=== PATIENT | female | born 1960 | race Caucasian/White ===

== ENCOUNTER 2019-12-28 18:02 | Emergency (ER) | payer BC, SELFPAY ==
[2019-12-28 19:48] VITALS: BP 119/65; PULSE 57; RESP 16; TEMP 36.9; O2SAT 99; BMI 40.6
--- NOTE | 2019-12-28 21:19 | ED_ITS ---
HPI - Female Genitourinary General Chief complaint: Urogenital-Female Stated complaint: MULTIPLE COMPLAINTS Time Seen by Provider: 12/28/19 21:19 Source: patient Mode of arrival: ambulatory Limitations: no limitations History of Present Illness HPI Narrative: Seen yesterday at the walk in and had a UTI and was placed on macrobid. this morning she vomited one time. Today patient had a negative rapid Covid, but because of GARCIA and vomiting the walk in sent her in MD elicited complaint: dysuria Onset (ago): day(s) Severity: mild Urinary symptoms: Dysuria Associated symptoms: other (migraine GARCIA, N/V) Related Data Previous Rx's Medication Instructions Recorded ondansetron HCl [Zofran] 4 mg PO Q8H PRN #10 tab 12/28/19 sulfamethoxazole-trimethoprim 1 tab PO BID #14 tab 12/28/19 [Bactrim DS] Allergies Allergy/AdvReac Type Severity Reaction Status Date / Time erythromycin base Allergy Unknown N/V Unverified 11/29/19 14:43 [ERYTHROMYCIN BASE] Review of Systems Constitutional: Constitutional: Reports no additional constitutional complaints Eyes: Eyes: Reports no additional eye complaints ENT: Denies dizziness Cardiovascular: Cardiovascular: Reports no additional cardiovascular complaints Respiratory: Respiratory: Reports as per HPI Gastrointestinal: Gastrointestinal: Reports no additional gastrointestinal complaints Genitourinary: Genitourinary: Reports no additional female genitourinary complaints Musculoskeletal: Musculoskeletal: Reports no additional musculoskeletal complaints Integumentary/Breasts: Skin/Breast: Denies rash Neurologic: Reports system reviewed and no additional complaints, except as documented, Denies dizziness and Denies Sensory deficit (Neuro) Psychiatric: Psychiatric: Denies anxiety [facility] Social History Social History Alcohol intake: unknown Smoking Status: Never smoker Smoked in Last 30 Days: No Use of substances other than those prescribed or required for medical reasons: No Advance Directives: No Advance Directives Information Provided: Yes Physical Exam Vital Signs: Vital Signs: Vital Signs Temp Pulse Resp BP Pulse Ox 12/28/19 19:48 98.4 F 57 16 119/65 99 Body Mass Index 40.6 Const: General: healthy appearing Nutritional Appearance: overweight Orientation/consciousness: oriented to person and patient oriented x3 Limitations: no limitations HENMT: Head: Yes normal to inspection Ears: external ears normal General nose exam: Normal external nose present Mouth: Normal oral and palatal mucosa present and oropharynx normal Throat: Yes posterior oropharynx normal Eyes: General: appearance normal, both eyes and all related structures Neck: Other: supple Neck: Yes normal visual inspection Chest: Chest palpation & inspection: normal inspection of the chest Resp: Auscultation: clear to auscultation bilaterally Cardio: Jugular venous distension: no JVD Rate: regular rate Rhythm: regular rhythm Heart sounds: S1 normal heart sound present and S2 normal heart sound present GI: Inspection: Yes normal to inspection Palpation (GI): Soft to palpation, nontender and No hepatosplenomegaly present Auscultation: normal bowel sounds : General: Yes no CVA tenderness Back/Spine/Pelvis: Back: no CVA tenderness Skin: General skin exam: no rashes or lesions noted Neuro: General: oriented to person and patient oriented x3 Cranial nerves: Yes CN's II-XII intact bilaterally Motor exam (neuro): 5/5 motor strength present throughout Sensory Exam: No Sensory deficit (Neuro) Extrem: General: Yes normal to inspection Psych: Appearance: grossly normal Course Course Course Narrative: patient feeling better not vomiting will dc home on zofran and bactrim MDM - Female Genitourinary Lab Data Result diagrams: 12/28/19 21:45 12/28/19 21:45 Labs: Lab Results 12/28/19 12/28/19 Range/Units 21:45 21:45 WBC 11.2 H (4.8-10.8) X10*3/uL RBC 4.22 (4.20-5.50) X10*6/uL Hgb 13.2 (12.0-16.0) g/dl Hct 39.9 (37-47) % MCV 94.5 (80-98) fL MCH 31.3 (27.0-33.0) pg MCHC 33.1 (31.0-35.0) g/dl RDW 12.2 (11.0-16.0) % Plt Count 267 (160-400) X10*3/uL MPV 9.8 (9.4-12.3) fL Immature Gran % (Auto) 0.4 (0.0-0.4) % Neut % (Auto) 69.5 (45-73) % Lymph % (Auto) 24.4 (20-40) % Crane % (Auto) 5.1 (2-11) % Eos % (Auto) 0.3 (0-4) % Baso % (Auto) 0.3 (0-2) % Lymph # (Auto) 2.7 (1.2-4.9) X10*3/uL [place]ane # (Auto) 0.6 (0.1-1.2) X10*3/uL Eos # (Auto) 0.0 (0.0-0.4) X10*3/uL Baso # (Auto) 0.0 (0.0-0.2) X10*3/uL Abs Immat Gran (auto) 0.04 H (0.00-0.03) X10*3/uL Absolute Neuts (auto) 7.8 (2.0-8.3) X10*3/uL Absolute Nucleated RBC 0.000 (0.0-0.012) X10*3/uL Nucleated RBC % (auto) 0.0 (0.0-0.2) /100WBC Sodium 139 (135-145) mmol/L Potassium 3.7 (3.3-5.1) mmol/l Chloride 100 (96-108) mmol/L Carbon Dioxide 30 H (22-29) mmol/L Anion Gap 13 (12-20) BUN 10 (9-16) mg/dL Creatinine 0.78 (0.5-1.4) mg/dL Estim Creat Clear Calc 108.5 Estimated GFR > 60 Random Glucose 107 (60-115) mg/dL Calcium 9.0 (8.4-10.2) mg/dL Discharge Plan Discharge Clinical Impression: Urinary tract infection Qualifiers: Urinary tract infection type: acute cystitis Hematuria presence: without hematuria Qualified Code(s): N30.00 - Acute cystitis without hematuria Migraine Qualifiers: Migraine type: unspecified Status migrainosus presence: without status migrainosus Intractability: not intractable Qualified Code(s): G43.909 - Migraine, unspecified, not intractable, without status migrainosus Patient Disposition: Home, Self-Care Instructions: Urinary Tract Infection in Older Adults (ED) Additional Instructions: stop macrobid and start bactrim Prescriptions: New sulfamethoxazole-trimethoprim [Bactrim DS] 800-160 mg tablet 1 tab PO BID Qty: 14 RF: 0 ondansetron HCl [Zofran] 4 mg tablet 4 mg PO Q8H PRN (Reason: nausea and vomiting) Qty: 10 RF: 0 Referrals: Mark Zaidi MD [Primary Care Provider] - 2 days
[2019-12-28 22:00] LABS: MANUAL DIFF FLAG NO
[2019-12-28] MEDS: Ketorolac Tromethamine 30 MG/ML VIAL IVPUSH (22:01)
[2019-12-28] MEDS: 0.9 % Sodium Chloride 500 ML 1000 ML IV (22:04)
[2019-12-28 22:05] LABS: Basophils Percent Auto 0.3 % (0-2); Eosinophils Percent Auto 0.3 % (0-4); Hematocrit 39.9 % (37-47); Hemoglobin 13.2 g/dl (12.0-16.0); Imm Gran Abs Auto 0.04 X10*3/uL (0.00-0.03); Imm Gran Pct Auto 0.4 % (0.0-0.4); Lymphocytes Absolute Auto 2.7 X10*3/uL (1.2-4.9); Lymphocytes Percent Auto 24.4 % (20-40); Mean Corpuscular HGB Conc 33.1 g/dl (31.0-35.0); Mean Corpuscular Hemoglobin 31.3 pg (27.0-33.0); Mean Corpuscular Volume 94.5 fL (80-98); Mean Platelet Volume 9.8 fL (9.4-12.3); Monocytes Absolute Auto 0.6 X10*3/uL (0.1-1.2); Monocytes Percent Auto 5.1 % (2-11); Neutrophils Absolute Auto 7.8 X10*3/uL (2.0-8.3); Neutrophils Percent Auto 69.5 % (45-73); Platelet Count 267 X10*3/uL (160-400); Red Blood Count 4.22 X10*6/uL (4.20-5.50); Red Cell Distribution Width 12.2 % (11.0-16.0); White Blood Count 11.2 X10*3/uL (4.8-10.8)
[2019-12-28 22:30] LABS: Anion Gap 13 (12-20); Blood Urea Nitrogen 10 mg/dL (9-16); Carbon Dioxide 30 mmol/L (22-29); Chloride 100 mmol/L (96-108); Creatinine Clr Calc Pharmacy 108.5; Estimated Glomerular Filt Rate > 60; Glucose Random 107 mg/dL (60-115); Potassium 3.7 mmol/l (3.3-5.1); Sodium 139 mmol/L (135-145)
[2019-12-28 23:45] VITALS: RESP 18; TEMP 36.4
== END 2019-12-28 23:46 | disposition home or self-care (01) ==
PROVIDERS: Emergency Provider Emergency Medicine; PCP Family Medicine
DX: N30.00 Acute cystitis without hematuria (principal); G43.909 Migraine, unspecified, not intractable, without status migrainosus; Z79.899 Other long term (current) drug therapy
CPT/HCPCS: 36415; 80048; 85025; 96361; 96374; 96375; 99285; J1885

== ENCOUNTER 2023-04-16 18:12 | Observation (INO) | payer BC, SELFPAY ==
--- NOTE | ~2023-04-16 | CT_ITS ---
EXAMINATION: CT ABDOMEN AND PELVIS WITH CONTRAST CLINICAL INFORMATION: Abdominal pain COMPARISON: None TECHNIQUE: Multiple axial images were obtained from the superior aspect of the liver through the pubic symphysis after the administration of 100 mL of intravenous Omnipaque 350. Images were evaluated on independent dedicated 3-D workstation and 3-D images were reconstructed with concurrent radiologist supervision and subsequently interpreted. Oral contrast was not administered. This CT examination was performed using dose optimization techniques as appropriate, variously including the following: *Automated exposure control *Adjustment of mA and/or kV according to patient size (this includes techniques or standardized protocols for targeted exams where dose is matched to indication/reason for exam; i.e. extremities or head) *Use of iterative reconstruction technique DLP: 1236 mGy-cm FINDINGS: LUNG BASES: The visualized lung bases are clear. CARDIOMEDIASTINUM: The visualized heart is normal in size without pericardial effusion. No coronary artery calcification. LIVER: Homogeneous in attenuation. Normal in size. GALLBLADDER: Absent. BILIARY SYSTEM: No intrahepatic or extrahepatic biliary dilation. PANCREAS: Homogeneous in attenuation. SPLEEN: Normal in size. GENITOURINARY: Bilateral kidneys demonstrate symmetric enhancement. No perinephric fluid collection. No renal calculi. No hydroureteronephrosis. ADRENAL GLANDS: Unremarkable. REPRODUCTIVE: Uterus and and bilateral adnexa are unremarkable. GASTROINTESTINAL: The visualized alimentary tract is normal in course. No evidence of obstruction. APPENDIX: Air-filled measuring 7 mm in diameter with periappendiceal fluid. PERITONEUM: No pneumoperitoneum. Trace free fluid within the pelvis.. VASCULATURE: The abdominal aorta is normal in course and caliber. LYMPH NODES: No pathologically enlarged abdominal or pelvic lymph nodes. SOFT TISSUES/MUSCULOSKELETAL: Severe multilevel facet arthropathy from L2 to S1. No acute fractures or focal osseous lesions. CT/CT abdomen pelvis w IV con IMPRESSION: Air-filled appendix with diameter of 7 mm and periappendiceal fluid. Although the appendiceal wall is not impressively thickened, these findings raise suspicion for acute appendicitis. Recommend surgical consultation. Fleischner guidelines were followed.
[2023-04-16 18:18] VITALS: BP 134/82; PULSE 84; RESP 16; TEMP 37.4; O2SAT 94; BMI 42.5
--- NOTE | 2023-04-16 18:18 | ED_ITS ---
HPI - General Adult General Chief complaint: Abdominal Pain Stated complaint: abd pain, vomitting Time Seen by Provider: 04/16/23 20:41 Source: patient Mode of arrival: ambulatory Limitations: no limitations History of Present Illness HPI narrative: Patient is a 62 year old assigned female at with a history of uveitis and diverticulosis presenting to the emergency department today with abdominal pain. Patient states that over the last few hours she has had abdominal pain and vomiting. Patient denies any dizziness, lightheadedness, fever, chills, blurry vision, double vision, loss of vision, chest pain, difficulty breathing, shortness of breath, back pain, night sweats, pain with urination, increased urinary frequency, increased urinary urgency, blood in her urine or stool, syncope or a near syncopal episode, recent trauma or falls, bowel incontinence, bladder incontinence, bowel retention, bladder retention, or any other complaints at this time. Onset (ago): hour(s) Location: abdomen Severity: mild Severity scale (1-10): 4 Relieving factors: none Exacerbating factors: none Associated symptoms: nausea/vomiting Treatments prior to arrival: none Related Data Previous Rx's Medication Instructions Recorded ondansetron HCl 4 mg tablet 4 mg PO Q8H PRN nausea and 12/28/19 (Zofran) vomiting #10 tabs sulfamethoxazole 800 1 tab PO BID #14 tabs 16/20 mg-trimethoprim 160 mg tablet (Bactrim DS) Allergies Allergy/AdvReac Type Severity Reaction Status Date / Time erythromycin base Allergy Unknown N/V Verified 04/17/23 00:19 [ERYTHROMYCIN BASE] Review of Systems 2 Constitutional: Constitutional: Reports no additional constitutional complaints, Denies chills, Denies fever(s) and Denies night sweats Eyes: Eyes: Reports no additional eye complaints, Denies blurry vision, Denies change in vision, Denies diplopia, Denies eye discharge, Denies loss of vision and Denies eye pain ENT: Denies dizziness Cardiovascular: Cardiovascular: Reports no additional cardiovascular complaints, Denies chest pain, Denies lightheadedness, Denies Loss of Consciousness and Denies dyspnea Respiratory: Respiratory: Reports no additional respiratory complaints and Denies dyspnea Gastrointestinal: Gastrointestinal: Reports no additional gastrointestinal complaints, Reports abdominal pain, Denies melena, Denies hematochezia, Denies change in bowel habits, Denies change in stool character, Reports nausea and Reports vomiting Genitourinary: Genitourinary: Denies hematuria, Denies urinary frequency, Denies dysuria, Denies urinary incontinence, Denies urinary hesitancy and Denies urinary urgency Musculoskeletal: Musculoskeletal: Reports no additional musculoskeletal complaints, Denies numbness and Denies tingling Neurologic: Denies dizziness, Denies loss of vision, Denies numbness and Denies tingling Psychiatric: Psychiatric: Reports no additional psychiatric complaints Endocrine: Endocrine: Reports no additional endocrine complaints Hematologic/Lymphatic: Hematologic/Lymphatic: Reports no additional hematologic/lymphatic complaints Allergic/Immunologic: Allergic/Immunologic: Reports no additional allergic/immunologic complaints PMFSH Past Medical History Attestation statement: The following information was validated with the patient. Source: old records reviewed and nursing notes reviewed Social History Social History Alcohol intake: unknown Smoked in Last 30 Days: No Use of substances other than those prescribed or required for medical reasons: No Advance Directives: Yes Advance Directives Information Provided: No Advance Directives on File: No Physical Exam ED Vital Signs: Vital Signs - 24 hr 04/16/23 18:18 04/16/23 23:28 04/16/23 23:28 Temperature 99.3 F 98.1 F 98.6 F Pulse Rate 84 63 67 Respiratory Rate 16 16 16 Blood Pressure 134/82 146/63 H 146/63 H Pulse Oximetry 94 98 98 Oxygen Delivery Method Room Air Room Air Room Air BMI result Body Mass Index 42.5 Const General: cooperative, no acute distress, alert and awake Nutritional Appearance: well nourished Orientation/consciousness: patient oriented x3 Limitations: no limitations [facility] Head: Yes normal to inspection and Yes atraumatic Ears: hearing grossly normal bilaterally and external ears normal General nose exam: Normal external nose present, no nasal discharge noted and no epistaxis Face and sinus: Yes normal facial exam, No abrasion and No laceration Mouth: Normal oral and palatal mucosa present, no drooling and no muffled voice Eyes General: appearance normal, both eyes and all related structures Periorbital: periorbital findings normal Eyelids: Yes eyelids normal Conjunctivae: conjunctivae normal Pupils: Equal, round and reactive pupils present EOM: EOMs intact bilaterally Neck Neck: Yes normal visual inspection, Yes full ROM and Yes no lymphadenopathy Chest Chest palpation & inspection: normal inspection of the chest Resp Effort & Inspection: normal respiratory effort and able to speak in complete sentences GI Inspection: Yes normal to inspection Palpation (GI): Soft to palpation, not firm, Tenderness to palpation present (GI) in the RLQ, no guarding and not rigid Neuro General: patient oriented x3 and moves all extremities Cranial nerves: Yes Equal, round and reactive pupils present Cognition (Neuro): normal cognition Motor exam (neuro): 5/5 motor strength present throughout Sensory Exam: Normal double simultaneous stimulation for sensation Coordination: [id number] test normal Extrem General: Yes normal to inspection, Yes full ROM and Yes capillary refill normal Psych Appearance: grossly normal Mental Status: mental status grossly normal Affect: normal affect Attitude: cooperative Thought process: Normal thought process present Thought content: Normal thought content present Insight: Good insight present (Psych) Course Course Course Narrative: This is a rapid medical exam: Additional HPI, ROS, PE not included below will be deferred to primary provider. Patient is a 62-year-old female presenting to the ED with complaint of abdominal pain since 2 pm. Developed nausea and vomiting at 4pm. Took a zofran which is prescribed to her for migraines, but continued to vomit. Denies diarrhea or fevers. States pain is epigastric and to both sides of abdomen. Plan: EKG, labs, UA, viral swabs Medications Administered Generic Name Dose Route Start Last Admin Trade Name Freq PRN Reason Stop Dose Admin Acetaminophen 1,000 mg in 100 mls @ 400 mls/hr 04/16/23 23:45 04/17/23 01:09 Ofirmev IV 04/17/23 17:59 Infused Q6H TERESA Infusion Dextrose/Lactated Ringer's 1,000 mls @ 125 mls/hr 04/16/23 23:45 04/17/23 01:08 D5lr IVCONT 125 mls/hr .Q8H TERESA Administration Sodium Chloride 3 ml 04/17/23 00:00 04/17/23 01:08 0.9 % Sodium Chloride Flush 3 Ml Syringe IVFLUSH Not Given QSHIFT TERESA Discontinued Medications Generic Name Dose Route Start Last Admin Trade Name Freq PRN Reason Stop Dose Admin Piperacillin Sod/Tazobactam 50 mls @ 100 mls/hr 04/16/23 23:59 04/17/23 01:08 Sod 3.375 gm/ Sodium Chloride IV 04/17/23 00:28 Infused ONCE ONE Infusion Iohexol 100 ml 04/16/23 22:47 04/16/23 22:48 Iohexol 350 Mg/Ml 100 Ml Infus..Btl IV 04/16/23 22:48 100 ml ONCE ONE Administration Medical Decision Making Medical Decision Making MDM Narrative: Patient is a 62 year old assigned female at with a history of uveitis and diverticulitis presenting to the emergency department today with RLQ abdominal pain. Patient's physical exam was as noted in the physical exam portion of the note. Patient's blood work showed an elevated WBC count of 11.6 but otherwise unremarkable. Patient's urine showed no acute process. Patient's EKG was unremarkable. Patient's abdomen/pelvis CT showed a possible appendicitis. I spoke to the surgical team who agreed to admission and recommended starting IV Zosyn. I explained my physical exam findings as well as all test results to the patient and the patient's . I answered all questions asked by the patient and the patient's . Patient and the patient's verbalized agreement and understanding with this treatment plan and admission. Differential Diagnosis Differential Diagnoses: The differential diagnosis associated with the presentation includes Appendicitis Diverticulitis Abdominal pain Nausea Vomiting Admission/Observation Consideration of admission/observation: Escalation of care including admission/observation considered Patient admitted. 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 My interpretation of these results are in the MDM Rationale portion of this note. 04/16/23 18:42 04/16/23 18:42 Labs: Lab Results 04/16/23 Range/Units 18:42 WBC 11.6 H (4.8-10.8) X10*3/uL RBC 4.46 (4.20-5.50) X10*6/uL Hgb 13.2 (12.0-16.0) g/dl Hct 39.4 (37.0-47.0) % MCV 88.3 (80.0-98.0) fL MCH 29.6 (27.0-33.0) pg MCHC 33.5 (31.0-35.0) g/dl RDW 12.5 (11.0-16.0) % Plt Count 311 (160-400) X10*3/uL MPV 9.3 L (9.4-12.3) fL Immature Gran % (Auto) 0.3 (0.0-0.4) % Neut % (Auto) 80.9 H (45-73) % Lymph % (Auto) 14.1 L (20-40) % [place]atte % (Auto) 3.4 (2-11) % Eos % (Auto) 1.0 (0-4) % Baso % (Auto) 0.3 (0-2) % Lymph # (Auto) 1.6 (1.2-4.9) X10*3/uL [place] # (Auto) 0.4 (0.1-1.2) X10*3/uL Eos # (Auto) 0.1 (0.0-0.4) X10*3/uL Baso # (Auto) 0.0 (0.0-0.2) X10*3/uL Abs Immat Gran (auto) 0.03 (0.00-0.03) X10*3/uL Absolute Neuts (auto) 9.4 H (2.0-8.3) x10*3/uL Absolute Nucleated RBC 0.000 (0.0-0.012) X10*3/uL Nucleated RBC % (auto) 0.0 (0.0-0.2) /100WBC PT 11.5 (11.1-13.3) SEC INR 0.9 (0.9-1.1) Sodium 144 (135-145) mmol/L Potassium 4.4 (3.3-5.1) mmol/L Chloride 109 H (96-108) mmol/L Carbon Dioxide 23 (22-29) mmol/L Anion Gap 16 (12-20) BUN 11 (9-16) mg/dL Creatinine 0.80 (0.5-1.4) mg/dL Estim Creat Clear Calc 107.8 Estimated GFR > 60 Random Glucose 137 H (60-115) mg/dL Calcium 9.5 (8.4-10.2) mg/dL Total Bilirubin 0.5 (0.0-1.0) mg/dL AST 16 (5-31) U/L ALT 21 (0-31) U/L Alkaline Phosphatase 127 H (39-117) U/L Troponin I High Sens 3.1 (<3.5-17.0) ng/L Total Protein 6.7 (6.5-8.0) g/dL Albumin 4.0 (3.5-5.0) g/dL COVID-19 (JAREN) Negative (Negative) COVID-19 Clin Com See Note Independent Interpretation I performed an independent interpretation of an: CT Scan Interpretation: My interpretation is in agreement with the radiologist's impression of this imaging study. - EXAMINATION: CT ABDOMEN AND PELVIS WITH CONTRAST CLINICAL INFORMATION: Abdominal pain COMPARISON: None TECHNIQUE: Multiple axial images were obtained from the superior aspect of the liver through the pubic symphysis after the administration of 100 mL of intravenous Omnipaque 350. Images were evaluated on independent dedicated 3-D workstation and 3-D images were reconstructed with concurrent radiologist supervision and subsequently interpreted. Oral contrast was not administered. This CT examination was performed using dose optimization techniques as appropriate, variously including the following: *Automated exposure control *Adjustment of mA and/or kV according to patient size (this includes techniques or standardized protocols for targeted exams where dose is matched to indication/reason for exam; i.e. extremities or head) *Use of iterative reconstruction technique DLP: 1236 mGy-cm FINDINGS: LUNG BASES: The visualized lung bases are clear. CARDIOMEDIASTINUM: The visualized heart is normal in size without pericardial effusion. No coronary artery calcification. LIVER: Homogeneous in attenuation. Normal in size. GALLBLADDER: Absent. BILIARY SYSTEM: No intrahepatic or extrahepatic biliary dilation. PANCREAS: Homogeneous in attenuation. SPLEEN: Normal in size. GENITOURINARY: Bilateral kidneys demonstrate symmetric enhancement. No perinephric fluid collection. No renal calculi. No hydroureteronephrosis. ADRENAL GLANDS: Unremarkable. REPRODUCTIVE: Uterus and and bilateral adnexa are unremarkable. GASTROINTESTINAL: The visualized alimentary tract is normal in course. No evidence of obstruction. APPENDIX: Air-filled measuring 7 mm in diameter with periappendiceal fluid. PERITONEUM: No pneumoperitoneum. Trace free fluid within the pelvis.. VASCULATURE: The abdominal aorta is normal in course and caliber. LYMPH NODES: No pathologically enlarged abdominal or pelvic lymph nodes. SOFT TISSUES/MUSCULOSKELETAL: Severe multilevel facet arthropathy from L2 to S1. No acute fractures or focal osseous lesions. CT/CT abdomen pelvis w IV con IMPRESSION: Air-filled appendix with diameter of 7 mm and periappendiceal fluid. Although the appendiceal wall is not impressively thickened, these findings raise suspicion for acute appendicitis. Recommend surgical consultation. Fleischner guidelines were followed. Dictated By: Wellington Norman Signed By: Electronically signed by Wellington Norman 04/16/23 4003 Radiology Impression Discussion of test interpretation with radiology: I have reviewed the radiologist's reading. Independent Historian Clinical information obtained from an independent historian. History obtained from or confirmed by: Spouse (patient's provided additional history and confirmed the history provided by the patient.) Critical Care Time Critical Care Time Critical Care Time: Yes Total Critical Care Time: 45 Attestation: I spent 45 minutes of Critical Care Time with this patient. This does not include time spent on separately reported billable procedures. Discharge Plan Discharge Clinical Impression: Appendicitis Patient Disposition: Admitted As Inpatient Interventions: Admission Worksheet (ED) Last Done: 04/17/23 00:51
--- NOTE | 2023-04-16 18:20 | ECG_ITS ---
Test Reason : abd pain vomiting Blood Pressure : / mmHG Vent. Rate : 079 BPM Atrial Rate : 079 BPM P-R Int : 138 ms QRS Dur : 088 ms QT Int : 370 ms P-R-T Axes : 000 -39 003 degrees QTc Int : 424 ms Normal sinus rhythm Left axis deviation Abnormal ECG When compared with ECG of 25-MAR-2005 03:23, No significant change was found Referred By: Shauna Heck Electronically Signed By:ARGELIA PARIS MD
[2023-04-16 18:47] LABS: MANUAL DIFF FLAG NO
[2023-04-16 18:50] LABS: Basophils Percent Auto 0.3 % (0-2); Eosinophils Absolute Auto 0.1 X10*3/uL (0.0-0.4); Hematocrit 39.4 % (37.0-47.0); Hemoglobin 13.2 g/dl (12.0-16.0); Imm Gran Abs Auto 0.03 X10*3/uL (0.00-0.03); Imm Gran Pct Auto 0.3 % (0.0-0.4); Lymphocytes Absolute Auto 1.6 X10*3/uL (1.2-4.9); Lymphocytes Percent Auto 14.1 % (20-40); Mean Corpuscular HGB Conc 33.5 g/dl (31.0-35.0); Mean Corpuscular Hemoglobin 29.6 pg (27.0-33.0); Mean Corpuscular Volume 88.3 fL (80.0-98.0); Mean Platelet Volume 9.3 fL (9.4-12.3); Monocytes Absolute Auto 0.4 X10*3/uL (0.1-1.2); Monocytes Percent Auto 3.4 % (2-11); Neutrophils Absolute Auto 9.4 x10*3/uL (2.0-8.3); Neutrophils Percent Auto 80.9 % (45-73); Platelet Count 311 X10*3/uL (160-400); Red Blood Count 4.46 X10*6/uL (4.20-5.50); Red Cell Distribution Width 12.5 % (11.0-16.0); White Blood Count 11.6 X10*3/uL (4.8-10.8)
[2023-04-16 18:55] LABS: INTERNATIONAL NORM RATIO 0.9 (0.9-1.1); Prothrombin Time 11.5 SEC (11.1-13.3)
[2023-04-16 19:06] LABS: Alanine Aminotransferase 21 U/L (0-31); Alkaline Phosphatase 127 U/L (39-117); Anion Gap 16 (12-20); Aspartate Amino Transferase 16 U/L (5-31); Bilirubin Total 0.5 mg/dL (0.0-1.0); Blood Urea Nitrogen 11 mg/dL (9-16); Calcium 9.5 mg/dL (8.4-10.2); Carbon Dioxide 23 mmol/L (22-29); Chloride 109 mmol/L (96-108); Creatinine Clr Calc Pharmacy 107.8; Estimated Glomerular Filt Rate > 60; Glucose Random 137 mg/dL (60-115); Potassium 4.4 mmol/L (3.3-5.1); Sodium 144 mmol/L (135-145); Total Protein 6.7 g/dL (6.5-8.0)
[2023-04-16 19:13] LABS: Troponin-I High Sensitivity 3.1 ng/L (<3.5-17.0)
[2023-04-16 19:15] LABS: COVID-19 Test Negative (Negative); IDNOW Serial# 152EDE1D
[2023-04-16] MEDS: iohexoL 350 MG/ML 100 ML INFUS..BTL IV (22:48)
[2023-04-16 23:28] VITALS: BP 146/63; PULSE 63; PULSE 67; RESP 16; TEMP 36.7; TEMP 37; O2SAT 98
[2023-04-17] MEDS: Acetaminophen 1,000 MG/100 ML PIGGYBACK 400 MG IV ×3 (00:46→12:23)
[2023-04-17] MEDS: Piperacillin Sodium/Tazobactam 3.375 GM in 0.9 % Sodium Chloride 50 ML IV ×2 (00:46→05:51)
[2023-04-17 00:49] LABS: Appearance Urine Clear; Color Urine Yellow; Glucose Urine UA Negative (Negative); Leukocyte Esterase Urine Negative (Negative); Nitrite Urine Negative (Negative); PH 5.5 (5.0-9.0); Specific Gravity - Urine >= 1.030 (1.005-1.025); Urine Blood Negative (Negative); Urine Ketones Negative (Negative); Urine Protein Negative (Neg-Trace)
[2023-04-17 01:04] LABS: Lactic Acid 1.1 mmol/L (0.5-2.0)
[2023-04-17] MEDS: Dextrose 5 % and Lactated Ring 1,000 ML 125 ML IVCONT (01:08)
[2023-04-17 01:46] VITALS: BMI 42.4
[2023-04-17 01:47] VITALS: BP 147/76; PULSE 76; RESP 18; TEMP 36.3; O2SAT 96
[2023-04-17 02:51] VITALS: RESP 20; O2SAT 96
[2023-04-17 06:16] LABS: MANUAL DIFF FLAG NO
[2023-04-17 06:26] LABS: Basophils Percent Auto 0.6 % (0-2); Eosinophils Absolute Auto 0.2 X10*3/uL (0.0-0.4); Eosinophils Percent Auto 2.9 % (0-4); Hematocrit 33.5 % (37.0-47.0); Hemoglobin 10.9 g/dl (12.0-16.0); Imm Gran Abs Auto 0.02 X10*3/uL (0.00-0.03); Imm Gran Pct Auto 0.3 % (0.0-0.4); Lymphocytes Absolute Auto 1.9 X10*3/uL (1.2-4.9); Lymphocytes Percent Auto 28.6 % (20-40); Mean Corpuscular HGB Conc 32.5 g/dl (31.0-35.0); Mean Corpuscular Hemoglobin 29.3 pg (27.0-33.0); Mean Corpuscular Volume 90.1 fL (80.0-98.0); Mean Platelet Volume 9.2 fL (9.4-12.3); Monocytes Absolute Auto 0.4 X10*3/uL (0.1-1.2); Neutrophils Percent Auto 61.6 % (45-73); Platelet Count 256 X10*3/uL (160-400); Red Blood Count 3.72 X10*6/uL (4.20-5.50); Red Cell Distribution Width 12.7 % (11.0-16.0); White Blood Count 6.5 X10*3/uL (4.8-10.8)
--- NOTE | 2023-04-17 06:36 | P.HPGS_ITS ---
History of Present Illness History of Present Illness Date of Service: 04/17/23 Chief complaint: early acute appendicitis Narrative: Falguni Roblero is a 62 year old female recently diagnosed with uveitis 1 week ago now presenting with complaints of abdominal pain. The pain began in t he upper abdomen but gradually radiated into the right lower quadrant. Pain was associated with some anorexia but without nausea or vomiting. She denied fever or chills. She reports a previous episode of similar pain approximately a year ago while in [place]. This episode resulted in right groin pain as well. The previous episode improved spontaneously without the need for medical treatment. She presented to the emergency department yesterday and was noted to have tenderness in the right lower quadrant. Laboratories revealed an elevated WBC. CT abdomen and pelvis revealed a gas-filled appendix which was not dilated however a small amount of fluid was noted surrounding the appendix. Although not diagnostic, this was felt possibly due to early appendicitis. The patient was subsequently admitted to the surgical service for IV antibiotics. She received Zosyn overnight and this morning reports feeling much improved with no further abdominal pain, nausea or vomiting. She still does not have much of an appetite however. Repeat WBC is normal this morning. Review of Systems Review of Systems: Yes all other systems are reviewed and are negative Constitutional: Constitutional: Denies chills and Reports poor appetite Gastrointestinal: Gastrointestinal: Reports abdominal pain, Denies heartburn, Denies diarrhea, Denies nausea and Denies vomiting Musculoskeletal: Musculoskeletal: Reports no additional musculoskeletal complaints PMFSH Past Medical History Medical History Cataract (lens) fragments in eye following cataract surgery, bilateral Surgical History Surgical History History of total knee replacement Social History Social History Alcohol intake: unknown Smoked in Last 30 Days: No Second Hand Smoke Exposure: No Use of substances other than those prescribed or required for medical reasons: No Advance Directives: Yes Advance Directives Information Provided: No Advance Directives on File: No Advance Directives Date on File: 04/17/23 Meds Allergies Allergy/AdvReac Type Severity Reaction Status Date / Time erythromycin base Allergy Unknown N/V Verified 04/17/23 00:19 [ERYTHROMYCIN BASE] Active Medications: Current Medications Hydromorphone HCl (Hydromorphone Hcl 0.5 Mg/0.5 Ml Syringe) 0.5 mg IVPUSH Q3H PRN; Protocol PRN Reason: Pain, Severe (Pain Scale 7-10) Acetaminophen (Ofirmev) 1,000 mg in 100 mls @ 400 mls/hr IV Q6H [facility] Stop: 04/17/23 17:59 Last Admin: 04/17/23 06:26 Dose: 400 mls/hr Piperacillin Sod/Tazobactam (Sod 3.375 gm/ Sodium Chloride) 50 mls @ 100 mls/hr IV Q6H [facility] Last Infusion: 04/17/23 06:21 Dose: Infused Ondansetron HCl (Ondansetron Hcl 4 Mg/2 Ml Vial) 4 mg IVPUSH Q6H PRN PRN Reason: Nausea Oxycodone HCl (Oxycodone Hcl Immed Release 5 Mg Tablet) 5 mg PO Q6H PRN PRN Reason: Pain, Moderate(Pain Scale 4-6) Prednisolone Acetate (Prednisolone Acetate 1 % Oph Susp 5 Ml Drpbtl) 1 drop EYE-BOTH Q3H [facility] Sodium Chloride (0.9 % Sodium Chloride Flush 3 Ml Syringe) 3 ml IVFLUSH QSHIFT [facility] Last Admin: 04/17/23 01:08 Dose: Not Given Zolpidem Tartrate (Zolpidem Tartrate 5 Mg Tablet) 5 mg PO BEDTIME PRN PRN Reason: Insomnia Physical Exam Vital Signs: Vital Signs: Last Vital Signs Temp 97.4 F 04/17/23 01:47 Pulse 76 04/17/23 01:47 Resp 20 04/17/23 02:51 BP 147/76 H 04/17/23 01:47 Pulse Ox 96 04/17/23 01:47 O2 Del Method Room Air 04/17/23 01:47 BMI result Body Mass Index 42.4 Const: General: cooperative and no acute distress Nutritional Appearance: well nourished Orientation/consciousness: patient oriented x3 Limitations: no limitations HEENT: Head: Yes normocephalic and Yes atraumatic Ears: hearing grossly normal bilaterally Resp: Effort & Inspection: normal respiratory effort, no audible wheezes, no cough and no respiratory distress Cardio: Jugular venous distension: no JVD GI: Inspection: Yes normal to inspection and Yes Abdominal panniculus present Palpation (GI): Soft to palpation, nontender, no guarding, not rigid and No hepatosplenomegaly present Percussion: Yes normal to percussion Auscultation: normal bowel sounds Skin: Other: Warm, dry, no rash Neuro: General: patient oriented x3 Extrem: General: Yes no clubbing, cyanosis or edema Results Results Labs: Short CBC 04/16/23 04/17/23 Range/Units 18:42 05:47 WBC 11.6 H 6.5 (4.8-10.8) X10*3/uL Hgb 13.2 10.9 L (12.0-16.0) g/dl Hct 39.4 33.5 L (37.0-47.0) % Plt Count 311 256 (160-400) X10*3/uL BMP 04/16/23 18:42 Sodium 144 Potassium 4.4 Chloride 109 H Carbon Dioxide 23 BUN 11 Creatinine 0.80 Calcium 9.5 Liver Function 04/16/23 Range/Units 18:42 Total Bilirubin 0.5 (0.0-1.0) mg/dL AST 16 (5-31) U/L ALT 21 (0-31) U/L Alkaline Phosphatase 127 H (39-117) U/L Albumin 4.0 (3.5-5.0) g/dL Urine 04/17/23 Range/Units 00:33 Urine Color Yellow Urine Appearance Clear Urine pH 5.5 (5.0-9.0) Ur Specific [place] >= 1.030 H (1.005-1.025) Urine Protein Negative (Neg-Trace) mg/dL Urine Glucose (UA) Negative (Negative) mg/dL Assessment and Plan (1) Appendicitis: Qualifiers: Appendicitis type: acute appendicitis Acute appendicitis type: unspecified acute appendicitis type Qualified Code(s): K35.80 - Unspecified acute appendicitis Status: Acute Plan 62-year-old female patient presenting with complaints of abdominal pain in the right lower quadrant found to have a mildly elevated WBC and CT scan changes suggestive of a very early appendicitis. The patient was admitted for IV antibiotics. This morning she feels improved with decreased abdominal pain. Laboratories revealed a normalized WBC. She continues to have some anorexia but overall feels improved. I recommended restarting her diet today. If she is able to tolerate this she may be discharged to home on oral antibiotics.. She will follow-up in the office in approximately 1 week. Should she continue to have abdominal discomfort, consideration will be given for a outpatient appendectomy. Patient expressed understanding and agrees with the plan. Quality Stroke Does the patient have a stroke diagnosis?: No VTE Prior VTE?: No VTE Risk Level:: Surgical - moderate VTE Device Contraindication: N/A - Device Ordered VTE Drug Contraindication: Treatment Not Indicated Procedures Date of Service Date of Service: 04/17/23
[2023-04-17] MEDS: prednisoLONE Acetate 1 % Oph Susp 5 ML DRPBTL 1 DROP EYE-BOTH ×3 (06:42→13:05)
[2023-04-17 07:05] VITALS: BP 136/72; PULSE 56; RESP 20; TEMP 36.6; O2SAT 97
--- NOTE | 2023-04-17 08:55 | PHA.MEDREC ---
Pharmacy Consult ? Medication Reconciliation Pharmacy has completed the medication reconciliation. Pt prednisone opthalmic suspension dose changed to q3h while awake in both eyes Stefan
[2023-04-17 11:21] VITALS: BP 147/68; PULSE 70; RESP 16; TEMP 36.2; O2SAT 97
--- NOTE | 2023-04-17 13:48 | P.DS_ITS ---
DS: Providers Provider Date of Service: 04/17/23 Date of admission: 04/16/23 23:56 Date of discharge: 04/17/23 Primary care physician: Mark Zaidi MD Admitting clinician: Eduardo Laureano Discharging clinician: Eduardo Laureano DS: Diagnosis Discharge Diagnosis (1) Appendicitis: Status: Acute DS: Summary Hospital Course Hospital Course: Falguni Roblero is a 62 year old female recently diagnosed with uveitis 1 week ago now presenting with complaints of abdominal pain. The pain began in the upper abdomen but gradually radiated into the right lower quadrant. Pain was associated with some anorexia but without nausea or vomiting. She denied fever or chills. She reports a previous episode of similar pain approximately a year ago while in [place]. This episode resulted in right groin pain as well. The previous episode improved spontaneously without the need for medical treatment. She presented to the emergency department yesterday and was noted to have tenderness in the right lower quadrant. Laboratories revealed an elevated WBC. CT abdomen and pelvis revealed a gas-filled appendix which was not dilated however a small amount of fluid was noted surrounding the appendix. Although not diagnostic, this was felt possibly due to early appendicitis. The patient was subsequently admitted to the surgical service for IV antibiotics. She received Zosyn overnight and this morning reports feeling much improved with no further abdominal pain, nausea or vomiting. She still does not have much of an appetite however. Repeat WBC is normal this morning. The patient was allowed to have a regular diet and tolerated this well without increased abdominal pain, nausea or vomiting. She was re-evaluated at approximately 13:30 and found to be asymptomatic with no tenderness in the abdomen. She will be discharged to home on oral antibiotics (Augmentin 500 mg 1 tab p.o. Q 8 hours times 10 days). She will follow up in my office in approximately 1 week. Status at Discharge Functional status at discharge: independent ambulation Overall status at discharge: patient is back to baseline Time Attestation Discharge coordination time: Less than 30 minutes Quality: Safe Use of Opioids Does Pt have an Active Cancer Diagnosis on the Problem List?: No Quality: Stroke Does the patient have a stroke diagnosis?: No Physical Exam Vital Signs: Vital Signs: Last Vital Signs Temp 97.2 F 04/17/23 11:21 Pulse 70 04/17/23 11:21 Resp 16 04/17/23 11:21 BP 147/68 H 04/17/23 11:21 Pulse Ox 97 04/17/23 11:21 O2 Del Method Room Air 04/17/23 11:21 BMI result Body Mass Index 42.4 Const: General: cooperative and no acute distress Nutritional Appearance: well nourished Orientation/consciousness: patient oriented x3 Limitations: no limitations HEENT: Head: Yes normocephalic and Yes atraumatic Ears: hearing grossly normal bilaterally Resp: Effort & Inspection: normal respiratory effort, no audible wheezes, no cough and no respiratory distress Cardio: Jugular venous distension: no JVD GI: Inspection: Yes normal to inspection and Yes Abdominal panniculus present Palpation (GI): Soft to palpation, nontender, no guarding, not rigid and No hepatosplenomegaly present Percussion: Yes normal to percussion Auscultation: normal bowel sounds Skin: Other: Warm, dry, no rash Neuro: General: patient oriented x3 Extrem: General: Yes no clubbing, cyanosis or edema DS: Data Data Completed and Pending Labs on day of discharge: Laboratory Results - last 24 hr 04/16/23 04/17/23 04/17/23 18:42 00:33 05:47 WBC 11.6 H 6.5 RBC 4.46 3.72 L Hgb 13.2 10.9 L Hct 39.4 33.5 L MCV 88.3 90.1 MCH 29.6 29.3 MCHC 33.5 32.5 RDW 12.5 12.7 Plt Count 311 256 MPV 9.3 L 9.2 L Immature Gran % (Auto) 0.3 0.3 Neut % (Auto) 80.9 H 61.6 Lymph % (Auto) 14.1 L 28.6 [place] % (Auto) 3.4 6.0 Eos % (Auto) 1.0 2.9 Baso % (Auto) 0.3 0.6 Lymph # (Auto) 1.6 1.9 [place] # (Auto) 0.4 0.4 Eos # (Auto) 0.1 0.2 Baso # (Auto) 0.0 0.0 Abs Immat Gran (auto) 0.03 0.02 Absolute Neuts (auto) 9.4 H 4.0 Absolute Nucleated RBC 0.000 0.000 Nucleated RBC % (auto) 0.0 0.0 PT 11.5 INR 0.9 Sodium 144 Potassium 4.4 Chloride 109 H Carbon Dioxide 23 Anion Gap 16 BUN 11 Creatinine 0.80 Estim Creat Clear Calc 107.8 Estimated GFR > 60 Random Glucose 137 H Lactic Acid 1.1 Calcium 9.5 Total Bilirubin 0.5 AST 16 ALT 21 Alkaline Phosphatase 127 H Troponin I High Sens 3.1 Total Protein 6.7 Albumin 4.0 Urine Color Yellow Urine Appearance Clear Urine pH 5.5 Ur Specific [place] >= 1.030 H Urine Protein Negative Urine Glucose (UA) Negative Urine Ketones Negative Urine Blood Negative Urine Nitrite Negative Ur Leukocyte Esterase Negative COVID-19 (JAREN) Negative COVID-19 Clin Com See Note Discharge Plan Discharge Anticipated Discharge Date/Time: 04/17/23 13:44 Patient Disposition: Home, Self-Care Referrals: Mark Zaidi MD [Primary Care Provider] - 1 Week Eduardo Laureano MD [Physician] - 1 Week Discharge Medications: New amoxicillin-pot clavulanate [Augmentin] 500-125 mg tablet 1 tab PO Q8H Qty: 30 0RF Continued metoprolol succinate 100 mg tablet extended release 24 hr 100 mg PO BID sumatriptan succinate 50 mg tablet 50 mg PO DAILY PRN (Reason: MIGRAINE HEADACHES) prednisolone acetate 1 % drops,suspension 1 drp ophthalmic (eye) Q3H Rx Instructions: Q3H WHILE AWAKE valsartan 160 mg tablet 160 mg PO BID Discharge Orders: Discharge Order (Routine); Ordered 04/17/23 Ordered By: Eduardo Laureano Diet: Advance to usual diet Activity on Discharge: As tolerated Stand Alone Forms: Patient Portal Discharge page Care Plan Goals: Return to normal diet and activity Health Concerns: Abdominal pain lower quadrant Plan of Treatment: Antibiotic management early appendicitis Assessment: Early appendicitis
--- NOTE | 2023-04-17 16:09 | MHC.CM.PN ---
PT REPORTS SHE LIVES AT HOME WITH HER AND IS INDEPENDENT WITH CARE SHE HAS NO SERVICES AND USES ONLY A CPAP FOR DME COPY OF HCP REQUESTED PCP: ESE ROLLINS OBSERVATION NOTICE DELIVERED PT DISCHARGED HOME TODAY WITH NO SERVICES PROVIDED TRANSPORT
== END 2023-04-17 14:22 | disposition home or self-care (01) ==
LOC: HO.ED 22:00 → HO.EDOVER 04-17 00:10 → HO.S3 04-17 00:34
PROVIDERS: Physician Assistant Medical; Registered Nurse Emergency; Admitting Provider Surgery; Emergency Provider Emergency Medicine Emergency Medical Services; PCP Family Medicine; Visit Provider Surgery
DX: K35.80 Unspecified acute appendicitis (principal); R10.31 Right lower quadrant pain; R11.10 Vomiting, unspecified; H20.9 Unspecified iridocyclitis; Z11.52 Encounter for screening for COVID-19
CPT/HCPCS: 36415; 74177; 80053; 81003; 83605; 84484; 85025; 85610; 87040; 87635; 93005; 94660; 96361; 96365; 96366; 96368; 99221; 99285; J0131; J2543; Q9967

== ENCOUNTER → 2023-04-16 18:20 | Outpatient (BNV) | payer BC, SELFPAY | PROVIDERS: Admitting Provider Surgery; Emergency Provider Emergency Medicine Emergency Medical Services; PCP Family Medicine; Visit Provider Internal Medicine Cardiovascular Disease | DX: R10.9 Unspecified abdominal pain (principal) | CPT/HCPCS: 93010 ==

== ENCOUNTER → 2023-04-16 23:56 | Outpatient (BNV) | payer BC, SELFPAY | PROVIDERS: Admitting Provider Surgery; Emergency Provider Emergency Medicine Emergency Medical Services; PCP Family Medicine; Visit Provider Surgery | DX: K35.80 Unspecified acute appendicitis (principal) | CPT/HCPCS: 99235 ==

== ENCOUNTER 2023-04-28 10:22 | Outpatient (AMB) | payer BC, SELFPAY ==
--- NOTE | 2023-04-28 10:53 | A.OFFVIS_ITS ---
Intake Intake Visit Reasons: Early appendicitis, [facility] – [place] Inpatient follow up Intake Note: Patient is seen in office for ER follow up visit, following early appendicitis. Pt c/o: per pt has funny feeling in the right abdomen only when mention, diarrhea after meals denies nausea, vomit, constipation ER:04/17/23 [employer] Attorney Required: No Accompanied by: Family/Other Allergies erythromycin base [ERYTHROMYCIN BASE] Allergy (Unknown, Verified 04/28/23 10:55) N/V Medication List - Last Reconciled 04/28/23 by Eduardo Laureano MD metoprolol succinate ER 100 mg PO BID prednisolone acetate 1% 1 drp ophthalmic (eye) Q3H sumatriptan succinate 50 mg PO DAILY PRN valsartan 160 mg PO BID HPI HPI Comments History of Present Illness Details 62-year-old female patient recently admitted to [facility] on 04/16/2023 and discharged home on 04/17/2023 after developing epigastric abdominal pain associated with nausea and vomiting. Pain became more generalized and she subsequently presented to the ER for further evaluation. CT abdomen and pelvis revealed an air-filled nondilated appendix with a small amount of peritoneal fluid surrounding the tip. This was felt to be possibly due to early appendicitis. The patient was admitted for observation and placed on IV antibiotics. By the next day she was much improved with no further abdominal pain and subsequently discharged home. She has been on oral antibiotics up until yesterday and reports no further abdominal pain but just a funny feeling in the right side. She denies any fever, chills, nausea or vomiting. She is planning on traveling to [place] ([facility] in 1 month for vacation. [facility] Medical History Cataract (lens) fragments in eye following cataract surgery, bilateral Surgical History History of total knee replacement Social History Alcohol intake: unknown Second Hand Smoke Exposure: No Advance Directives Date on File: 04/17/23 service: No Review of Systems Const All systems reviewed & are unremarkable except as noted in HPI and below Physical Exam Vital Signs: Last Vital Signs Temp 97.2 F 04/17/23 11:21 Pulse 70 04/17/23 11:21 Resp 16 04/17/23 11:21 BP 147/68 H 04/17/23 11:21 Pulse Ox 97 04/17/23 11:21 O2 Del Method Room Air 04/17/23 11:21 BMI result Body Mass Index 42.4 Const General: cooperative and no acute distress Nutritional Appearance: well nourished Orientation/consciousness: patient oriented x3 Limitations: no limitations Resp Effort & Inspection: normal respiratory effort, no audible wheezes, no cough and no respiratory distress Cardio Jugular venous distension: no JVD GI Inspection: Yes normal to inspection and Yes Abdominal panniculus present Palpation (GI): Soft to palpation, nontender, no guarding, not rigid and No hepatosplenomegaly present Percussion: Yes normal to percussion Auscultation: normal bowel sounds Skin Other: Warm, dry, no rash Neuro General: patient oriented x3 Extrem General: Yes no clubbing, cyanosis or edema Assessment & Plan Assessment & Plan (1) Appendicitis: Code(s): K37 - Unspecified appendicitis Qualifiers: Acute appendicitis type: unspecified acute appendicitis type Appendicitis type: acute appendicitis Qualified Code(s): K35.80 - Unspecified acute appendicitis Plan 62-year-old female patient returning for follow-up examination after recent hospitalization. Symptoms have completely resolved with no further abdominal pain. Examination today revealed no tenderness in the right lower quadrant, no rebound, guarding or rigidity. CT scan was marginal for possible very early appendicitis. We discussed the possibility of proceeding to an elective laparoscopic appendectomy verses observation. As her symptoms essentially resolved we will continue observation at this time. She is welcome to call should the symptoms return for re-evaluation and to restart antibiotics. She expressed understanding and agrees with the plan. Coding Level of Care Code Est Pt Level 3 (59291) Diagnoses Acute appendicitis, unspecified acute appendicitis type K35.80 Acute appendicitis type: unspecified acute appendicitis type Appendicitis type: acute appendicitis
== END 2023-04-28 11:10 | disposition home or self-care (01) ==
PROVIDERS: PCP Family Medicine; Visit Provider Surgery
DX: K35.80 Unspecified acute appendicitis (principal)
CPT/HCPCS: 99213

== ENCOUNTER → 2023-04-28 10:22 | Outpatient (BNVA) | payer BC, SELFPAY | PROVIDERS: PCP Family Medicine; Visit Provider Surgery ==